=== PATIENT | male | born 1990 | race Caucasian/White ===

== ENCOUNTER 2017-04-02 19:59 | Emergency (ER) | payer SELFPAY ==
--- NOTE | 2017-04-08 19:43 | ER ---
ADMIT: 04/02/2017 RM/LOC: [place] [facility] [place] [id number] [facility] [address] [place], [place] [id number] [address] [facility] [address] [place] [address] Emergency Room Report SEX: M AGE: 26 : 1990 DATE: 04/02/2017 CHIEF COMPLAINT: Left hand pain. HISTORY OF PRESENT ILLNESS: This is a 26-year-old black male, who presents to the ER after sustaining an injury at home. He states he was frustrated and he punched the counter. Had obvious deformity and swelling. Rates the pain as an 8/10. Denies any tingling or numbness distally. Otherwise, healthy. He takes no medications. No known drug allergies. COURSE IN THE EMERGENCY ROOM: The patient is seen and examined. Afebrile and nontoxic, in no acute distress. Inspection of the hand shows significant bony tenderness over the left 5th metatarsal. He has significant swelling and deformity. No other injuries noted on exam. Sensation is intact. Motor is normal. No vascular compromise. Brisk capillary refill. Skin is warm, dry, and intact. Routine hand series obtained. Significant for distal 5th metacarpal fracture. He was given [place] 5/325 two tabs p.o. A splint was applied, ulnar gutter. Neurovascularly intact. Ready for discharge. IMPRESSION: Closed left distal 5th metacarpal fracture. DISPOSITION: The patient was discharged to keep the splint on and for a followup with Orthopedics. Tylenol or Motrin as needed for pain. He is not to drive while after taking narcotics in the ER this evening. Rest, ice, compress, elevate, followup with Ortho next week. Questions sought and answered to the best of my ability and to the patient's satisfaction. Discharged in stable condition. KARLOS Garcia / Contreras Villegas MD / modl JOB #: [id number] CC: Contreras Villegas MD, Attending Physician Cheo Gomez MD, Family Physician
== END 2017-04-02 21:00 | disposition home or self-care (01) ==
LOC: ER 19:59
PROC: 2W3FX1Z Immobilization of Left Hand using Splint (ICD-10-PCS; principal; 2017-04-02)
DX: S62.337A Displaced fracture of neck of fifth metacarpal bone, left hand, initial encounter for closed fracture (principal); W22.8XXA Striking against or struck by other objects, initial encounter; Y92.009 Unspecified place in unspecified non-institutional (private) residence as the place of occurrence of the external cause